=== PATIENT | female | born 1970 | race Caucasian/White ===

== ENCOUNTER 2016-07-24 16:43 | Emergency (ER) | payer OTHER ==
--- NOTE | ~2016-07-24 | CR21 ---
[facility] A Service of [facility] & [facility] RADIOLOGY TEXT RESULTS PATIENT: ELIZA RUBIN LOCATION: [facility] : 68 UNIT #: [id number] AGE: [address]: Eliza Barnard APRN SEX: F ORDER DR: [id number] [facility] [address] [place], [place] [address] [id number] E MR#: [id number] Acc #: [id number] NAME: ELIZA RUBIN : 1970 SEX: F STUDY DATE/TIME: 07/24/2016 17:17 UNIT: [facility] ROOM: STUDY DESCRIPTION: CR Ankle Min 3 Views Rt Attending Physician: Eliza Barnard A.P.R.N. Ordering Physician: Barber Bill M.D. Primary Care Physician: Ayaz Harris M.D. MEDICAL IMAGING REPORT This report is preliminary unless electronic signature is present EXAM Right ankle 3 views HISTORY Lateral ankle pain after twisting injury today. FINDINGS 3 views of the right ankle demonstrate soft tissue swelling over the lateral malleolus. Bone alignment is normal. No fracture, joint space narrowing or dislocation. IMPRESSION 1. No fracture. 2. Normal bone alignment. 3. Soft tissue swelling over the lateral malleolus. Dictated by... Wale Cardenas M.D. THIS IS AN ELECTRONICALLY VERIFIED REPORT Wale Cardenas M.D. at 07/25/2016 10:33 PM DFL/pcl TD: 07/25/2016 01:29 JOB #: [id number] MEDICAL IMAGING REPORT Page 1 of 1 COPY
[~2016-07-24 16:43] MED LIST: ALLEGRA PO; ATENOLOL; OMNICEF PO; SINGULAIR PO; TUSSIONEX PENN473 ML PO; WELLBUTRIN XL; [UNRECOGNIZED DRUG - OTHER] PO
== END 2016-07-24 18:40 | disposition home or self-care (01) ==
LOC: CED 16:43 → CFTX 16:43
DX: S93.421A Sprain of deltoid ligament of right ankle, initial encounter (principal); F32.9 Major depressive disorder, single episode, unspecified; W10.9XXA Fall (on) (from) unspecified stairs and steps, initial encounter; Y92.009 Unspecified place in unspecified non-institutional (private) residence as the place of occurrence of the external cause
CPT/HCPCS: 73610; 99283

== ENCOUNTER 2016-10-15 14:07 | Emergency (ER) | payer OTHER ==
[~2016-10-15] VITALS: Ht 157.5 cm; Wt 63.5 kg
--- NOTE | ~2016-10-15 | CT4 ---
[facility] A Service of [facility] & [facility] RADIOLOGY TEXT RESULTS PATIENT: CHRISTOPHE RUBIN LOCATION: [facility] : 68 UNIT #: [id number] AGE: [address]: Nikos Jacome MD SEX: F ORDER DR: [id number] [facility] [address] [place], [place] [address] [id number] E MR#: [id number] Acc #: [id number] NAME: CHRISTOPHE RUBIN : 1970 SEX: F STUDY DATE/TIME: 10/15/2016 16:01 UNIT: [facility] ROOM: STUDY DESCRIPTION: CT Abd and Pelv Wo Cont Attending Physician: Nikos Jacome M.D. Ordering Physician: Nikos Jacome M.D. Primary Care Physician: Ayaz Harris M.D. MEDICAL IMAGING REPORT This report is preliminary unless electronic signature is present EXAM CT of abdomen and pelvis, 10/15/2016. CLINICAL HISTORY Left flank pain for 2 days. Left and right flank pain, headache for 2 days, worse on left side. TECHNIQUE CT abdomen and pelvis performed without administration of oral or intravenous contrast. This CT exam was performed with one or more of the following radiation dose reduction techniques: automatic exposure control, adjustment of mA and/or kV according to patient size, and iterative reconstruction. COMPARISON 11/10/2007. FINDINGS Linear scarring or atelectasis at the lung bases. Inferior heart and pericardium unremarkable. Liver, gallbladder, spleen, pancreas, and adrenal glands unremarkable. No renal calculi. Mild pyelocaliectasis bilaterally more pronounced on the left than right and mild hydroureter bilaterally with some periureteral fat stranding and haziness. No obstructing process seen. No ureteral or bladder calculi. No periureteral or perinephric fluid collection. CT PELVIS: No inguinal adenopathy. Uterus and adnexal regions unremarkable. The urinary bladder is unremarkable. There is no pelvic or retroperitoneal adenopathy. The distal esophagus, stomach, small bowel are unremarkable. Appendix normal. Colon shows uncomplicated sigmoid diverticulosis. Unopacified vascular structures appear normal in caliber. The bony structures are unremarkable. STS. [facility] A Service of [facility] & [facility] RADIOLOGY TEXT RESULTS PATIENT: CHRISTOPHE RUBIN LOCATION: [facility] : 68 UNIT #: [id number] AGE: [address]: Nikos Jacome MD SEX: F ORDER DR: IMPRESSION 1. There is very mild bilateral pyelocaliectasis left greater than right. There is mild ureteral distension to the level of the urinary bladder bilaterally with no obstructing process seen, and there is mild periureteral inflammatory change. No fluid collection. Cause for these findings unclear. Consider bilateral urinary tract infection. Correlate with clinical presentation and urinalysis. 2. Gallbladder, pancreas, appendix normal. Uterus and adnexal regions unremarkable. 3. Uncomplicated sigmoid diverticulosis. 4. Not mentioned in the body of the report, there is umbilical jewelry in place. See remainder of incidental findings in body of report. Dictated by... Ahmet Bell M.D. THIS IS AN ELECTRONICALLY VERIFIED REPORT Ahmet Bell M.D. at 10/18/2016 12:58 PM Becky TD: 10/16/2016 17:47 JOB #: [id number] MEDICAL IMAGING REPORT Page 1 of 1 COPY
[2016-10-15 14:44] LABS: BASOPHIL# 0.1 X10e3 (0-0.3); BASOPHIL% 0.4 % (0-2.5); EOSINOPHIL% 0.1 % (0.0-7.0); HEMATOCRIT 38.4 % (35.0-45.0); HEMOGLOBIN 12.9 gm/dL (12.0-16.0); LYMPHOCYTE# 1.1 X10e3 (1.0-3.5); MEAN CELL VOLUME 88.1 FL (83-96); MEAN CORPUSCULAR HEMOGLOBIN 29.6 PG (28-34); MEAN CORPUSCULAR HGB CONC 33.6 g/dL (30-36); MEAN PLATELET VOLUME 7.4 FL (6.5-11.5); MONOCYTE% 5.6 % (3.0-12.0); NEUTROPHIL# 16.3 X10e3 (1.5-7.1); NEUTROPHIL% 87.9 % (40-75); PLATELET COUNT 305 X10e3 (140-420); RED BLOOD COUNT 4.36 X10e (3.90-5.30); RED CELL DISTRIBUTION WIDTH 12.3 % (11.0-15.5); WHITE BLOOD COUNT 18.5 X10e3 (4.0-10.5)
[2016-10-15 14:46] LABS: DIFF IND YES
[2016-10-15 14:53] LABS: URINE SOURCE CLEAN CATCH
[2016-10-15 15:02] LABS: ALBUMIN SERUM 4.1 g/dL (3.5-5.0); BILIRUBIN,TOTAL 0.6 mg/dL (0.2-2.0); CALCIUM SERUM 9.2 mg/dL (8.4-10.2); CREATININE SERUM 0.8 mg/dL (0.6-1.4); GLOM FILT RATE Estimated 87.9 mL/min (>60); POTASSIUM 3.9 mmol/L (3.5-5.1); PROTEIN TOTAL SERUM 7.3 g/dL (6.0-8.3)
[2016-10-15 15:24] LABS: URINE APPEARANCE CLEAR; URINE BILIRUBIN NEG (NEG); URINE BLOOD 2+ (NEG); URINE COLOR YELLOW; URINE GLUCOSE NEG (NEG); URINE KETONE NEG (NEG); URINE LEUKOCYTE ESTERASE 3+ (NEG); URINE NITRATE NEG (NEG); URINE PROTEIN NEG (NEG); URINE SPECIFIC GRAVITY 1.004 (1.003-1.035); URINE UROBILINOGEN 0.2 MG/DL (NEG)
[2016-10-15 15:47] LABS: PLATELET ESTIMATE NORMAL (NORMAL)
[2016-10-15 15:54] LABS: CULTURE INDICATED? NO
== END 2016-10-15 18:14 | disposition home or self-care (01) ==
LOC: CED 14:07
PROVIDERS: Emergency Medicine
DX: N28.82 Megaloureter (principal); F41.9 Anxiety disorder, unspecified
CPT/HCPCS: 74176; 80053; 81003; 84703; 85025; 96361; 96374; 96375; 99284; J0696; J1885; J2270; J2405